=== PATIENT | female | born 1990 | race Caucasian/White ===

== ENCOUNTER 2017-01-25 18:15 | Emergency (ER) | payer OTHER ==
[2017-01-25 18:26] VITALS: BP 143/93; TEMP 98.3; BMI 18.3
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
[2017-01-25 19:17] VITALS: PULSE 81
--- NOTE | 2017-01-28 12:42 | EKG ---
Test Reason : Blood Pressure : / mmHG Vent. Rate : 088 BPM Atrial Rate : 088 BPM P-R Int : 122 ms QRS Dur : 080 ms QT Int : 384 ms P-R-T Axes : 072 075 035 degrees QTc Int : 464 ms SINUS RHYTHM POSSIBLE LEFT ATRIAL ENLARGEMENT POOR R WAVE PROGRESSION ABNORMAL ECG NO PREVIOUS ECGS AVAILABLE Confirmed by JAMARCUS AVINA MD ([id number] on 01/28/2017 12:42:21 PM Referred By: NATHALIA Confirmed By:JAMARCUS AVINA MD
== END 2017-01-25 19:54 | disposition home or self-care (01) ==
LOC: FER 18:15
DX: R07.89 Other chest pain (principal); F41.9 Anxiety disorder, unspecified
CPT/HCPCS: 93005; 99283-25